=== PATIENT | female | born 1995 | race Two or more races ===

== ENCOUNTER 2023-12-06 13:40 | Emergency (ER) | payer OTHER ==
[~2023-12-06] VITALS: Ht 162.6 cm; Wt 74.8 kg
[2023-12-06] MEDS ORDERED: PRENATAL + DHA1 EAC1 (14:39)
== END 2023-12-06 18:50 | disposition home or self-care (01) ==
LOC: ER 13:41
DX: L97.509 Non-pressure chronic ulcer of other part of unspecified foot with unspecified severity (principal)

== ENCOUNTER 2023-12-21 20:41 | Inpatient (IN) | payer OTHER ==
[~2023-12-21] VITALS: Ht 162.6 cm; Wt 75.3 kg
[2023-12-21 20:00] VITALS: BP 131/72
[~2023-12-21 20:41] MED LIST: PRENATAL + DHA1 EAC1
[2023-12-21 20:55] VITALS: BP 131/72
[2023-12-21] MEDS ORDERED: RINGERS SOLUTION,LACTATED 1,000 ML IV SCH (21:00)
[2023-12-21 23:22] VITALS: BP 112/65
[2023-12-22] VITALS (10 sets, daily range): BP systolic 100–131; BP diastolic 57–74
[2023-12-22] MEDS ORDERED: OXYTOCIN 500 ML IV SCH (10:00)
[2023-12-22 10:08] LABS: HEMATOCRIT 41.8 % (36.0-45.00); MEAN CELL VOLUME 91.9 fL (80.00-100.00); MEAN CORPUSCULAR HEMOGLOBIN 30.9 pg (27.00-32.0); MEAN CORPUSCULAR HGB CONC 33.6 g/dl (32.0-36.0); PLATELET COUNT 189 K/uL (150-450); RED BLOOD COUNT 4.55 M/uL (4.00-6.00); RED CELL DISTRIBUTION WIDTH 13.6 % (11.5-14.5)
[2023-12-22 10:12] LABS: URINE BACTERIA 75.5 uL (0.0-1933)
[2023-12-22 10:16] LABS: PH,URINE 7.5 (5.0-8.0); URINE APPEARANCE Clear; URINE BILIRRUBIN Negative (NEGATIVE); URINE BLOOD Negative; URINE COLOR Yellow; URINE GLUCOSE Negative (NEGATIVE); URINE KETONE Negative (NEGATIVE); URINE LEUKOCYTE Negative; URINE NITRATE Negative; URINE PROTEIN Negative (NEGATIVE); URINE UROBILINOGEN 0.2 E.U./dl
[2023-12-22 10:17] LABS: URINE EPITHELIAL CELLS 1.3 uL (0.0-38.8); URINE RBC 0.3 uL (0.0-20.8); URINE WBC 1.6 uL (0.0-23.2)
[2023-12-22 10:26] LABS: INR < 0.93; PARTIAL THROMBOPLASTIN TIME 24.8 SECONDS (22.0-34.0); PROTHROMBIN TIME 10.2 SECONDS (9.0-11.5)
[2023-12-22 10:30] LABS: BILIRUBIN TOTAL 0.37 mg/dL (0.3-1.2); CALCIUM 8.9 mg/dL (8.5-10.1); CREATININE SERUM 0.46 mg/dL (0.55-1.02); GFR 160.6; GLOBULINA 3.7 G/DL (2.4-3.5); POTASSIUM 4.12 mEq/L (3.5-5.1); TOTAL PROTEIN 6.7 gm/dL (6.4-8.2)
[2023-12-22] MEDS ORDERED: OXYTOCIN 20 UNITS/1000ML RL PIGGYBAG IV ONE (10:49)
[2023-12-22] MEDS ORDERED: ERYTHROMYCIN BASE OPHT 1GM EACH TUBE OP ONE ×2 (10:49→14:45)
[2023-12-22] MEDS ORDERED: LIDOCAINE HCL 1% 10ML VIAL ONE (10:49)
[2023-12-22] MEDS ORDERED: CHLORHEXIDINE GLUCONATE 120 ML BOTTLE TOP ONE ×2 (10:49→15:00)
[2023-12-22] MEDS ORDERED: OXYTOCIN 1,000 ML IV ONE (14:45)
[2023-12-22] MEDS ORDERED: IBUprofen 600 MG TABLET PO SCH (18:00)
[2023-12-23 01:00] VITALS: BP 108/68
[2023-12-23 09:02] VITALS: BP 94/58
[2023-12-23 12:50] VITALS: BP 118/69
[2023-12-23 17:37] VITALS: BP 112/65
[2023-12-24 03:04] VITALS: BP 108/68
[2023-12-24 08:00] VITALS: BP 97/60
[2023-12-24 16:00] VITALS: BP 114/74
== END 2023-12-24 18:03 | disposition home or self-care (01) | DRG 807 ==
LOC: OBS/DEL 20:41 → OB/GYN 12-22 09:16 → LDR 12-22 09:16 → OB/GYN 12-22 14:35
PROVIDERS: Obstetrics & Gynecology; ADMIT Specialist; ATTEND Specialist
PROC: 10E0XZZ Delivery of Products of Conception, External Approach (ICD-10-PCS; principal; 2023-12-22)
PROC: 4A1HXCZ Monitoring of Products of Conception, Cardiac Rate, External Approach (ICD-10-PCS; 2023-12-22)
DX: O80 Encounter for full-term uncomplicated delivery (principal); Z37.0 Single live birth; Z3A.38 38 weeks gestation of pregnancy; Z20.822 Contact with and (suspected) exposure to COVID-19